=== PATIENT | male | born 1970 | race African-American/Black ===

== ENCOUNTER 2017-11-23 19:14 | Inpatient (IN) ==
[2017-11-23] MEDS ORDERED: Etomidate Inj 40 MG/20 ML Vial IV.PUSH ONE ×2 (19:18→19:27)
[2017-11-23] MEDS ORDERED: Dextrose 50% in Water Syringe 50 ML ONE (19:22)
[2017-11-23] MEDS ORDERED: Propofol Inj 500 MG/50 ML Vial ONE ×2 (19:25→19:32)
[2017-11-23] MEDS ORDERED: Sod Chloride 0.9% Inj 1,000 ML IV.SIG ONE ×2 (19:27→20:24)
[2017-11-23] MEDS ORDERED: Succinylcholine Inj 100 MG/5 ML Syringe IV.PUSH ONE (19:27)
--- NOTE | 2017-11-23 20:02 | XR ---
EXAM DATE: 11/23/2017 7:50 PM EDT AGE/SEX: 89 years / Male INDICATIONS: Short of breath. CLINICAL DATA: This is the patient's initial encounter. Patient reports that signs and symptoms have been present for 1 day and indicates a pain score of Nonresponsive. MEDICAL/SURGICAL HISTORY: Non-responsive. Non-responsive. COMPARISON: No prior exams available for comparison. FINDINGS: The ET tube and NG tube are well placed. The heart size is normal. The lungs appear grossly clear. CONCLUSION: No acute abnormality is seen. Electronically signed by: Wes Hua MD 11/23/2017 8:01 PM EDT
[2017-11-23 20:25] LABS: Baso % (Auto) 0.6 % (0.0-2.0); Eos # (Auto) 0.1 th/mm3 (0.0-0.4); Eos % (Auto) 1.1 % (0.0-4.0); Hematocrit 41.6 % (39.0-51.0); Hemoglobin 13.8 gm/dL (13.0-17.0); Lymph # (Auto) 1.8 th/mm3 (1.0-4.8); Lymph % (Auto) 25.9 % (9.0-44.0); Mean Corpuscular HGB Conc 33.1 % (32.0-36.0); Mean Corpuscular Hemoglobin 32.2 pg (27.0-34.0); Mean Corpuscular Volume 97.3 fL (80.0-100.0); Mean Platelet Volume 7.9 fL (7.0-11.0); Mono # (Auto) 0.6 th/mm3 (0.0-0.9); Mono % (Auto) 7.9 % (0.0-8.0); Neut # (Auto) 4.5 th/mm3 (1.8-7.7); Neut % (Auto) 64.5 % (16.0-70.0); Platelet Count 269 th/mm3 (150-450); Red Blood Count 4.28 mil/mm3 (4.50-5.90); Red Cell Distribution Width 13.2 % (11.6-17.2)
[2017-11-23 20:30] LABS: ABG Base Excess -4.5 mmol/L (-2-2); ABG PCO2 43 mmHg (38-42); ABG PO2 181 mmHg (61-120)
[2017-11-23 20:31] LABS: Bacteria,Urine Occasional /hpf; Bilirubin,Urine Negative (Negative); Clarity,Urine Hazy (Clear); Color,Urine Yellow (Yellw/Straw); Glucose,Urine (UA) 50 mg/dL (Negative); Hyaline Casts,Urine 1 /lpf (0-3); Leukocyte Esterase,Urine Moderate (Negative); Nitrite,Urine Negative (Negative); Specific Gravity,Urine 1.012 (1.002-1.035)
[2017-11-23] MEDS ORDERED: Piperacil/Tazo 4.5 GM Premix 4.5 GM/100 ML BAG IV.SIG ONE (20:33)
[2017-11-23 20:36] LABS: Amphetamine Screen,Urine Neg (Neg); Barbiturate Screen,Urine Neg (Neg); Cannabinoid Screen,Urine Neg (Neg); Cocaine Screen,Urine Pos (Neg)
[2017-11-23 20:42] LABS: Activated Partial Thrombo Time 32.5 sec (24.3-30.1); INR 1.1 Ratio; Prothrombin Time 10.7 sec (9.8-11.6)
[2017-11-23 20:44] LABS: Albumin 4.2 g/dL (3.4-5.0); Anion Gap 14 meq/L (5-15); Aspartate Aminotransferase 19 U/L (15-37); Blood Urea Nitrogen 11 mg/dL (7-18); Calcium 8.9 mg/dL (8.5-10.1); Carbon Dioxide 22.4 meq/L (21.0-32.0); Chloride 104 meq/L (98-107); Glomerular Filtration Rate 46 mL/min (>89); Glucose,Random 52 mg/dL (74-106); Magnesium 2.2 mg/dL (1.5-2.5); Potassium 3.4 meq/L (3.5-5.1); Sodium 140 meq/L (136-145)
[2017-11-23 20:45] LABS: Alanine Aminotransferase 21 U/L (12-78); Phosphorus 1.5 mg/dL (2.5-4.9)
[2017-11-23 20:47] LABS: Alcohol 22 mg/dL (0-5)
[2017-11-23 20:47] LABS: Opiate Screen,Urine Neg (Neg)
[2017-11-23 20:48] LABS: Alkaline Phosphatase 61 U/L (45-117); Creatine Kinase 335 U/L (39-308); Total Protein 7.8 g/dL (6.4-8.2)
[2017-11-23] MEDS: Propofol 1000 mg/100 ml Inj 1,000 MG/100 ML BOTTLE IV.CONT PRN (20:56)
[2017-11-23 21:00] LABS: CKMB Percent 1.4 % (0.0-4.0); Creatine Kinase MB 4.8 ng/mL (0.5-3.6)
--- NOTE | 2017-11-23 21:26 | ED ---
HPI General Chief Complaint: Overdose Stated Complaint: Poss OD/Evac Time Seen by Provider: 11/23/17 19:26 Source: EMS Mode of arrival: EMS Limitations: altered mental status History of Present Illness HPI Narrative: Approximately 31-year-old male presents by ambulance with altered mental status with possible overdose. He was found with Motrin p.m. He was given 1.2 mg of Narcan with mild improvement. Patient unable to provide history MD complaint: intentional overdose Onset (ago): unknown Intent: unknown (report by ems had suicidal intent) Related Data Home Medications Medication Instructions Recorded Confirmed Unable to Obtain Home Meds 11/23/17 11/23/17 Allergies Allergy/AdvReac Type Severity Reaction Status Date / Time No Allergy Information Allergy Unverified 11/23/17 19:18 Available Review of Systems ROS Unobtainable unobtainable due to mental status [facility] Medical History Medical History Patient unable to obtain copy of document (Acute) Patient unable to obtain copy of document (Acute) Social History Social History Substance History: Unable to Obtain Smoking Status: Unknown if ever smoked How Often Do You Have a Drink Containing Alcohol: Unable to Obtain Immunization History Tetanus Immunization: Unable to Assess Hx Influenza Vaccine This Season: Unable to Assess Exam Narrative Exam Narrative: GENERAL: 31 n[age] y/o male presents in severe distress SKIN: Focused skin assessment warm/dry. HEAD: Atraumatic. Normocephalic. EYES: Pinpoint pupils. No scleral icterus. No injection or drainage. ENT: No nasal bleeding or discharge. Mucous membranes pink and moist. NECK: Trachea midline. CARDIOVASCULAR: Regular rate and rhythm. RESPIRATORY: No accessory muscle use. Clear to auscultation. Breath sounds equal bilaterally. GASTROINTESTINAL: Abdomen soft, nondistended NEUROLOGICAL: Eyes open, moves extremities to pain, nonverbal Procedures Intubation Sedative: etomidate Mg Given: 20 Paralytic: succinylcholine Mg Given: 100 Laryngoscope: Wolf ET Tube Uncuffed: No Tube Secured Depth (cm): 24 Tube Secured Location: lips Tube Placement Confirmation: visualized tube passing through cords, equal breath sounds bilaterally, no breath sounds over epigastrium and confirmation by capnometry Patient Tolerated Procedure: well Intubation Complications: none Additional Comments: emergently performed: INTUBATION: The patient was put in optimal position for the procedure. Rapid sequence intubation was initiated by me using 20 milligrams of etomidate IV and 100 milligrams of succinylcholine IV. The patient was intubated with a 8 cuffed endotracheal tube. Tube placement was confirmed by visualization of the tube and balloon passing through the cords, capnometry and subsequent chest x-ray. Breath sounds were equal and well aerated bilaterally postintubation. No breath sounds over stomach. Patient tolerated procedure well. Course Reevaluation(s) Reevaluation #1: additional sedation given, workup reviewed and will admit to icu Consultations Consultation #1: dr ortiz agrees to admit Initial Documented Vital Signs Respiratory Rate 12 11/23/17 19:18 Blood Pressure 171/114 H 11/23/17 19:18 Pulse Oximetry 100 11/23/17 19:18 Last Documented Vital Signs Pulse Rate 82 11/24/17 00:15 Respiratory Rate 16 11/24/17 00:15 Blood Pressure 128/72 11/24/17 00:15 Pulse Oximetry 98 11/24/17 00:15 Critical Care Time Critical Care Time: Yes Total Critical Care Time: 45 Attestation: Aggregate critical care time was 45 minutes. Time to perform other separately billable procedures was not included in the critical care time. My time did not include minutes spent treating any other patients simultaneously or on activities that did not directly contribute to the patient's treatment. The services I provided to this patient were to treat and/or prevent clinically significant deterioration that could result in: shock, I provided critical care services requiring my management, as noted below: Chart data review, documentation time, medication orders and management, vital sign assessments/reviewing monitor data, ordering and reviewing lab tests, ordering and interpreting/reviewing x-rays and diagnostic studies, care of the patient and discussion of the patient with the admitting physicians. Medical Decision Making MDM Narrative Medical decision making narrative: Patient arrived with decreased GCS. Patient was given 2 rounds of Narcan without improvement. Patient was also given an amp of dextrose for glucose in the 70s without improvement. Proceeded with rapid sequence intubation with etomidate and succinylcholine. He is placed on propofol for sedation. He was bolused on this to sedate. He was also given additional Ativan and Versed for sedation. Differential Diagnosis Differential Diagnosis: Overdose, intracranial bleed, electrolyte abnormality, sepsis Lab Data Lab results reviewed: Yes I reviewed the patient's lab results. Result diagrams: 11/23/17 19:25 11/23/17 19:25 Lab Results 11/23/17 11/23/17 11/23/17 Range/Units 19:25 19:25 19:25 WBC 7.0 (4.0-11.0) th/mm3 RBC 4.28 L (4.50-5.90) mil/mm3 Hgb 13.8 (13.0-17.0) gm/dL Hct 41.6 (39.0-51.0) % MCV 97.3 (80.0-100.0) fL MCH 32.2 (27.0-34.0) pg MCHC 33.1 (32.0-36.0) % RDW 13.2 (11.6-17.2) % Plt Count 269 (150-450) th/mm3 MPV 7.9 (7.0-11.0) fL Neut % (Auto) 64.5 (16.0-70.0) % Lymph % (Auto) 25.9 (9.0-44.0) % [place] % (Auto) 7.9 (0.0-8.0) % Eos % (Auto) 1.1 (0.0-4.0) % Baso % (Auto) 0.6 (0.0-2.0) % Neut # (Auto) 4.5 (1.8-7.7) th/mm3 Lymph # (Auto) 1.8 (1.0-4.8) th/mm3 [place] # (Auto) 0.6 (0.0-0.9) th/mm3 Eos # (Auto) 0.1 (0.0-0.4) th/mm3 Baso # (Auto) 0.0 (0.0-0.2) th/mm3 WBC Differential . Differential Comment Auto diff final PT 10.7 (9.8-11.6) sec INR 1.1 Ratio APTT 32.5 H (24.3-30.1) sec Puncture Site Patient Temperature O2 Saturation (90-100) % ABG pH (7.380-7.420) ABG pCO2 (38-42) mmHg ABG pO2 (61-120) mmHg ABG HCO3 (22-26) mmol/L ABG O2 Content (12.0-20.0) Vol % ABG Base Excess (-2-2) mmol/L ABG Methemoglobin (0-2) % Javi Test Hemoglobin (12.0-16.0) G/DL Carboxyhemoglobin (0-4) % O2 Delivery Device Vent Setting Inspired O2 % Critical Value Sodium 140 (136-145) meq/L Potassium 3.4 L (3.5-5.1) meq/L Chloride 104 (98-107) meq/L Carbon Dioxide 22.4 (21.0-32.0) meq/L Anion Gap 14 (5-15) meq/L BUN 11 (7-18) mg/dL Creatinine 1.34 H (0.60-1.30) mg/dL Estimated GFR 46 L (>89) mL/min Random Glucose 52 L (74-106) mg/dL Osmolality (275-295) mosm/kg Lactic Acid (0.4-2.0) mmol/L Calcium 8.9 (8.5-10.1) mg/dL Phosphorus 1.5 L (2.5-4.9) mg/dL Magnesium 2.2 (1.5-2.5) mg/dL Total Bilirubin 0.6 (0.2-1.0) mg/dL AST 19 (15-37) U/L ALT 21 (12-78) U/L Alkaline Phosphatase 61 (45-117) U/L Total Creatine Kinase 335 H (39-308) U/L CK-MB (CK-2) 4.8 H (0.5-3.6) ng/mL CK-MB (CK-2) % 1.4 (0.0-4.0) % Troponin I Less than 0.02 L (0.02-0.05) ng/mL Total Protein 7.8 (6.4-8.2) g/dL Albumin 4.2 (3.4-5.0) g/dL Urine Color (Yellw/Straw) Urine Clarity (Clear) Urine pH (5.0-8.5) Ur Specific [place] (1.002-1.035) Urine Protein (Neg-Trace) mg/dL Urine Glucose (UA) (Negative) mg/dL Urine Ketones (Negative) mg/dL Urine Occult Blood (Negative) Urine Nitrate (Negative) Urine Bilirubin (Negative) Urine Urobilinogen (Less than 2) mg/dL Ur Leukocyte Esterase (Negative) Urine RBC (0-3) /hpf Urine WBC (0-5) /hpf Urine WBC Clumps (None) Urine Bacteria (None) /hpf Hyaline Casts (0-3) /lpf Micro UA Comment Urine Culture Comments Salicylates (2.8-20.0) mg/dL Urine Opiates Screen (Neg) Acetaminophen (10.0-30.0) mcg/mL Ur Barbiturates Screen (Neg) Ur Amphetamines Screen (Neg) U Benzodiazepines Scrn (Neg) Urine Cocaine Screen (Neg) U Cannabinoids Screen (Neg) Serum Alcohol 22 H (0-5) mg/dL 11/23/17 11/23/17 11/23/17 Range/Units 19:25 19:25 19:45 WBC (4.0-11.0) th/mm3 RBC (4.50-5.90) mil/mm3 Hgb (13.0-17.0) gm/dL Hct (39.0-51.0) % MCV (80.0-100.0) fL MCH (27.0-34.0) pg MCHC (32.0-36.0) % RDW (11.6-17.2) % Plt Count (150-450) th/mm3 MPV (7.0-11.0) fL Neut % (Auto) (16.0-70.0) % Lymph % (Auto) (9.0-44.0) % [place] % (Auto) (0.0-8.0) % Eos % (Auto) (0.0-4.0) % Baso % (Auto) (0.0-2.0) % Neut # (Auto) (1.8-7.7) th/mm3 Lymph # (Auto) (1.0-4.8) th/mm3 [place] # (Auto) (0.0-0.9) th/mm3 Eos # (Auto) (0.0-0.4) th/mm3 Baso # (Auto) (0.0-0.2) th/mm3 WBC Differential Differential Comment PT (9.8-11.6) sec INR Ratio APTT (24.3-30.1) sec Puncture Site Patient Temperature O2 Saturation (90-100) % ABG pH (7.380-7.420) ABG pCO2 (38-42) mmHg ABG pO2 (61-120) mmHg ABG HCO3 (22-26) mmol/L ABG O2 Content (12.0-20.0) Vol % ABG Base Excess (-2-2) mmol/L ABG Methemoglobin (0-2) % Javi Test Hemoglobin (12.0-16.0) G/DL Carboxyhemoglobin (0-4) % O2 Delivery Device Vent Setting Inspired O2 % Critical Value Sodium (136-145) meq/L Potassium (3.5-5.1) meq/L Chloride (98-107) meq/L Carbon Dioxide (21.0-32.0) meq/L Anion Gap (5-15) meq/L BUN (7-18) mg/dL Creatinine (0.60-1.30) mg/dL Estimated GFR (>89) mL/min Random Glucose (74-106) mg/dL Osmolality (275-295) mosm/kg Lactic Acid 2.7 H (0.4-2.0) mmol/L Calcium (8.5-10.1) mg/dL Phosphorus (2.5-4.9) mg/dL Magnesium (1.5-2.5) mg/dL Total Bilirubin (0.2-1.0) mg/dL AST (15-37) U/L ALT (12-78) U/L Alkaline Phosphatase (45-117) U/L Total Creatine Kinase (39-308) U/L CK-MB (CK-2) (0.5-3.6) ng/mL CK-MB (CK-2) % (0.0-4.0) % Troponin I (0.02-0.05) ng/mL Total Protein (6.4-8.2) g/dL Albumin (3.4-5.0) g/dL Urine Color (Yellw/Straw) Urine Clarity (Clear) Urine pH (5.0-8.5) Ur Specific [place] (1.002-1.035) Urine Protein (Neg-Trace) mg/dL Urine Glucose (UA) (Negative) mg/dL Urine Ketones (Negative) mg/dL Urine Occult Blood (Negative) Urine Nitrate (Negative) Urine Bilirubin (Negative) Urine Urobilinogen (Less than 2) mg/dL Ur Leukocyte Esterase (Negative) Urine RBC (0-3) /hpf Urine WBC (0-5) /hpf Urine WBC Clumps (None) Urine Bacteria (None) /hpf Hyaline Casts (0-3) /lpf Micro UA Comment Urine Culture Comments Salicylates Less than 1.7 L (2.8-20.0) mg/dL Urine Opiates Screen (Neg) Acetaminophen Less than 2.0 L (10.0-30.0) mcg/mL Ur Barbiturates Screen (Neg) Ur Amphetamines Screen (Neg) U Benzodiazepines Scrn (Neg) Urine Cocaine Screen (Neg) U Cannabinoids Screen (Neg) Serum Alcohol (0-5) mg/dL 11/23/17 11/23/17 11/23/17 Range/Units 19:45 19:45 20:16 WBC (4.0-11.0) th/mm3 RBC (4.50-5.90) mil/mm3 Hgb (13.0-17.0) gm/dL Hct (39.0-51.0) % MCV (80.0-100.0) fL MCH (27.0-34.0) pg MCHC (32.0-36.0) % RDW (11.6-17.2) % Plt Count (150-450) th/mm3 MPV (7.0-11.0) fL Neut % (Auto) (16.0-70.0) % Lymph % (Auto) (9.0-44.0) % [place] % (Auto) (0.0-8.0) % Eos % (Auto) (0.0-4.0) % Baso % (Auto) (0.0-2.0) % Neut # (Auto) (1.8-7.7) th/mm3 Lymph # (Auto) (1.0-4.8) th/mm3 [place] # (Auto) (0.0-0.9) th/mm3 Eos # (Auto) (0.0-0.4) th/mm3 Baso # (Auto) (0.0-0.2) th/mm3 WBC Differential Differential Comment PT (9.8-11.6) sec INR Ratio APTT (24.3-30.1) sec Puncture Site Right radial Patient Temperature 98.6 O2 Saturation 96 (90-100) % ABG pH 7.31 L (7.380-7.420) ABG pCO2 43 H (38-42) mmHg ABG pO2 181 H (61-120) mmHg ABG HCO3 21 L (22-26) mmol/L ABG O2 Content 19.1 (12.0-20.0) Vol % ABG Base Excess -4.5 L (-2-2) mmol/L ABG Methemoglobin 0.7 (0-2) % Javi Test Present Hemoglobin 13.9 (12.0-16.0) G/DL Carboxyhemoglobin 2.6 (0-4) % O2 Delivery Device Ventilator Vent Setting Prvc/ac Inspired O2 50 % Critical Value No Sodium (136-145) meq/L Potassium (3.5-5.1) meq/L Chloride (98-107) meq/L Carbon Dioxide (21.0-32.0) meq/L Anion Gap (5-15) meq/L BUN (7-18) mg/dL Creatinine (0.60-1.30) mg/dL Estimated GFR (>89) mL/min Random Glucose (74-106) mg/dL Osmolality (275-295) mosm/kg Lactic Acid (0.4-2.0) mmol/L Calcium (8.5-10.1) mg/dL Phosphorus (2.5-4.9) mg/dL Magnesium (1.5-2.5) mg/dL Total Bilirubin (0.2-1.0) mg/dL AST (15-37) U/L ALT (12-78) U/L Alkaline Phosphatase (45-117) U/L Total Creatine Kinase (39-308) U/L CK-MB (CK-2) (0.5-3.6) ng/mL CK-MB (CK-2) % (0.0-4.0) % Troponin I (0.02-0.05) ng/mL Total Protein (6.4-8.2) g/dL Albumin (3.4-5.0) g/dL Urine Color Yellow (Yellw/Straw) Urine Clarity Hazy H (Clear) Urine pH 5.0 (5.0-8.5) Ur Specific [place] 1.012 (1.002-1.035) Urine Protein 30 H (Neg-Trace) mg/dL Urine Glucose (UA) 50 (Negative) mg/dL Urine Ketones Trace (Negative) mg/dL Urine Occult Blood Negative (Negative) Urine Nitrate Negative (Negative) Urine Bilirubin Negative (Negative) Urine Urobilinogen Less than 2 (Less than 2) mg/dL Ur Leukocyte Esterase Moderate H (Negative) Urine RBC 2 (0-3) /hpf Urine WBC 83 H (0-5) /hpf Urine WBC Clumps Few H (None) Urine Bacteria Occasional H (None) /hpf Hyaline Casts 1 (0-3) /lpf Micro UA Comment Cath-culture ind Urine Culture Comments Cath-cult indicated Salicylates (2.8-20.0) mg/dL Urine Opiates Screen Neg (Neg) Acetaminophen (10.0-30.0) mcg/mL Ur Barbiturates Screen Neg (Neg) Ur Amphetamines Screen Neg (Neg) U Benzodiazepines Scrn Neg (Neg) Urine Cocaine Screen Pos H (Neg) U Cannabinoids Screen Neg (Neg) Serum Alcohol (0-5) mg/dL 11/23/17 Range/Units 20:32 WBC (4.0-11.0) th/mm3 RBC (4.50-5.90) mil/mm3 Hgb (13.0-17.0) gm/dL Hct (39.0-51.0) % MCV (80.0-100.0) fL MCH (27.0-34.0) pg MCHC (32.0-36.0) % RDW (11.6-17.2) % Plt Count (150-450) th/mm3 MPV (7.0-11.0) fL Neut % (Auto) (16.0-70.0) % Lymph % (Auto) (9.0-44.0) % [place] % (Auto) (0.0-8.0) % Eos % (Auto) (0.0-4.0) % Baso % (Auto) (0.0-2.0) % Neut # (Auto) (1.8-7.7) th/mm3 Lymph # (Auto) (1.0-4.8) th/mm3 [place] # (Auto) (0.0-0.9) th/mm3 Eos # (Auto) (0.0-0.4) th/mm3 Baso # (Auto) (0.0-0.2) th/mm3 WBC Differential Differential Comment PT (9.8-11.6) sec INR Ratio APTT (24.3-30.1) sec Puncture Site Patient Temperature O2 Saturation (90-100) % ABG pH (7.380-7.420) ABG pCO2 (38-42) mmHg ABG pO2 (61-120) mmHg ABG HCO3 (22-26) mmol/L ABG O2 Content (12.0-20.0) Vol % ABG Base Excess (-2-2) mmol/L ABG Methemoglobin (0-2) % Javi Test Hemoglobin (12.0-16.0) G/DL Carboxyhemoglobin (0-4) % O2 Delivery Device Vent Setting Inspired O2 % Critical Value Sodium (136-145) meq/L Potassium (3.5-5.1) meq/L Chloride (98-107) meq/L Carbon Dioxide (21.0-32.0) meq/L Anion Gap (5-15) meq/L BUN (7-18) mg/dL Creatinine (0.60-1.30) mg/dL Estimated GFR (>89) mL/min Random Glucose (74-106) mg/dL Osmolality 294 (275-295) mosm/kg Lactic Acid (0.4-2.0) mmol/L Calcium (8.5-10.1) mg/dL Phosphorus (2.5-4.9) mg/dL Magnesium (1.5-2.5) mg/dL Total Bilirubin (0.2-1.0) mg/dL AST (15-37) U/L ALT (12-78) U/L Alkaline Phosphatase (45-117) U/L Total Creatine Kinase (39-308) U/L CK-MB (CK-2) (0.5-3.6) ng/mL CK-MB (CK-2) % (0.0-4.0) % Troponin I (0.02-0.05) ng/mL Total Protein (6.4-8.2) g/dL Albumin (3.4-5.0) g/dL Urine Color (Yellw/Straw) Urine Clarity (Clear) Urine pH (5.0-8.5) Ur Specific [place] (1.002-1.035) Urine Protein (Neg-Trace) mg/dL Urine Glucose (UA) (Negative) mg/dL Urine Ketones (Negative) mg/dL Urine Occult Blood (Negative) Urine Nitrate (Negative) Urine Bilirubin (Negative) Urine Urobilinogen (Less than 2) mg/dL Ur Leukocyte Esterase (Negative) Urine RBC (0-3) /hpf Urine WBC (0-5) /hpf Urine WBC Clumps (None) Urine Bacteria (None) /hpf Hyaline Casts (0-3) /lpf Micro UA Comment Urine Culture Comments Salicylates (2.8-20.0) mg/dL Urine Opiates Screen (Neg) Acetaminophen (10.0-30.0) mcg/mL Ur Barbiturates Screen (Neg) Ur Amphetamines Screen (Neg) U Benzodiazepines Scrn (Neg) Urine Cocaine Screen (Neg) U Cannabinoids Screen (Neg) Serum Alcohol (0-5) mg/dL Imaging Data Attestation: I personally reviewed and interpreted this imaging study as follows : Radiologist's impression: Chest X-Ray 11/23/17 19:27 CONCLUSION: Head CT 11/23/17 19:27 CONCLUSION: Discharge Plan Discharge Disposition Patient Disposition: 30 Still Patient Discharge Condition Condition: Critical Discharge Details Diagnosis: Drug overdose, Cocaine intoxication, Suicide attempt by multiple drug overdose , Respiratory failure Physicians Team ED Provider: Annette Jean Primary Care Provider: Primary Care Courtney Clemons Attending Provider: Pardeep Ortiz Status ED Status: Admitted Patient
--- NOTE | 2017-11-23 21:55 | CT ---
EXAM DATE: 11/23/2017 9:46 PM EDT AGE/SEX: 89 years / Male INDICATIONS: Altered mental status. CLINICAL DATA: This is the patient's initial encounter. Patient reports that signs and symptoms have been present for 1 day and indicates a pain score of Nonresponsive. MEDICAL/SURGICAL HISTORY: Non-responsive. Non-responsive. RADIATION DOSE: 56.35 CTDI (mGy) COMPARISON: No prior exams available for comparison. TECHNIQUE: CT of the head without contrast. Using automated exposure control and adjustment of the mA and/or kV according to patient size, radiation dose was kept as low as reasonably achievable to ob tain optimal diagnostic quality images. DICOM format image data is available electronically for revi ew and comparison. FINDINGS: Cerebrum: The ventricles are normal for age. There is a patent cavum septum pellucidum. No evidence of midline shift, mass lesion, hemorrhage or acute infarction. No extraaxial fluid collections are seen. Posterior Fossa: The cerebellum and brainstem are intact. The 4th ventricle is midline. The cerebe llopontine angle is unremarkable. Extracranial: The visualized portion of the orbits is intact. Skull: The calvaria is intact. No evidence of skull fracture. No acute abnormality is seen. . Electronically signed by: Wes Hua MD 11/23/2017 9:54 PM EDT
[2017-11-23] MEDS ORDERED: Acetaminophen 325 MG Tablet PO PRN (23:22)
[2017-11-23] MEDS ORDERED: Bisacodyl 10 MG Supp RECTAL PRN (23:22)
--- NOTE | 2017-11-23 23:27 | P.HPCC ---
History of Present Illness Primary Care Physician: No Primary Care Physician History of Present Illness: Approximately 31-year-old male presents by ambulance with altered mental status with possible overdose. He was found with Motrin p.m. He was given 1.2 mg of Narcan with mild improvement. He was intubated by ED attending for an airway protection and acute respiratory failure. No further history is obtainable due to patient's mental status and endotracheal intubation. Inpatient Certification: I certify that the inpatient services were ordered in accordance with Medicare regulations governing the order. This includes certification that hospital inpatient services are reasonable and necessary and in the case of services not specified as inpatient-only under 42 CFR 419.22(n), that they are appropriately provided as inpatient services in accordance to with the 2-midnight benchmark under 43 CFR 412.3(e) Estimated Total Length of Stay (Days): 5 Plans for Post Hospital Care: Not yet determined Review of Systems unobtainable due to endotracheal tube PMFSH - History History Provided By: Group President / EMT - Medical / Surgical Hx Neg / Unobtainable Medical Problems Denied: Unable to Obtain Surgical History: Unable to Obtain - Medical History Medical History: Medical History (Last Reviewed 11/23/17 @ 21:42 by Annette Jean MD) Patient unable to obtain copy of document Patient unable to obtain copy of document - Tobacco History Smoking Status: Unknown if ever smoked - Alcohol History How Often Do You Have a Drink Containing Alcohol: Unable to Obtain - Substance Use History Substance History: Unable to Obtain - Immunization History Tetanus Immunization: Unable to Assess Hx Influenza Vaccine This Season: Unable to Assess Medications and Allergies Active Medications: Active Medications Acetaminophen (Tylenol) 650 mg PO Q6H PRN PRN Reason: PAIN 1-10 AND/OR FEVER >101F Al Hydroxide/Mg Hydroxide (Milk Of Jennifer Liq) 30 ml PO Q12H PRN PRN Reason: Mild Constipation Albuterol (Duoneb Neb (Prn)) 1 ampul NEB Q2HR NEB PRN PRN Reason: WHEEZING Bisacodyl (Dulcolax Supp) 10 mg RECTAL DAILY PRN PRN Reason: SEVERE CONSITIPATION Chlorhexidine Gluconate (Peridex 0.12% Oral Kit) 15 ml OROPHARYNG BID@0800, 2000 [facility] Chlorhexidine Gluconate (Chlorhexidine 2% Cloth) 3 pack TOPICAL DAILY@0400 [facility] Stop: 11/29/17 03:59 Chlorhexidine Gluconate (Chlorhexidine 2% Cloth) 3 pack TOPICAL DAILY@0400 PRN PRN Reason: Extra cloth needed Stop: 11/29/17 03:59 Enoxaparin Sodium (Lovenox Inj) 40 mg SQ Q24H ALBA Famotidine (Pepcid Pf Inj) 20 mg IV.PUSH Q12HR ALBA Propofol (Diprivan 1000 Mg/100 Ml Inj) 1,000 mg in 100 mls @ 3 mls/hr IV.CONT TITRATE PRN; Protocol PRN Reason: Per Protocol Last Admin: 11/23/17 20:56 Dose: 30 mcg/kg/min, 18 mls/hr Sodium Chloride (Ns Inj) 1,000 mls @ 124 mls/hr IV.CONT .Q8H4M ALBA Lactulose (Lactulose Liq) 30 ml PO DAILY PRN PRN Reason: SEVERE CONSITIPATION Midazolam HCl (Versed Inj) 2 mg IV.PUSH Q1H PRN PRN Reason: SEDATION Ondansetron HCl (Zofran Inj) 4 mg IV.PUSH Q6H PRN PRN Reason: NAUSEA OR VOMITING Senna/Docusate Sodium (Sanjana-Colace) 1 tab PO BID ALBA Sennosides (Senokot) 17.2 mg PO Q12H PRN PRN Reason: Moderate Constipation Sodium Chloride (Ns Flush) 2 ml IV.FLUSH PRN PRN PRN Reason: FLUSH AFTER USING IV ACCESS Sodium Chloride (Ns Flush) 2 ml IV.FLUSH BID ALBA Sodium Chloride (Ns Flush) 2 ml IV.FLUSH PRN PRN PRN Reason: FLUSH AFTER USING IV ACCESS Allergies Allergy/AdvReac Type Severity Reaction Status Date / Time No Allergy Information Allergy Unverified 11/23/17 19:18 Available Home Medications Medication Instructions Recorded Confirmed Type Unable to Obtain Home Meds 11/23/17 11/23/17 History Results - Labs CBC & Chem 7: 11/23/17 19:25 11/23/17 19:25 Labs: Short CBC 11/23/17 Range/Units 19:25 WBC 7.0 (4.0-11.0) th/mm3 Hgb 13.8 (13.0-17.0) gm/dL Hct 41.6 (39.0-51.0) % Plt Count 269 (150-450) th/mm3 BMP 11/23/17 19:25 Sodium 140 Potassium 3.4 L Chloride 104 Carbon Dioxide 22.4 BUN 11 Creatinine 1.34 H Calcium 8.9 Cardiac Enzymes 11/23/17 Range/Units 19:25 Total Creatine Kinase 335 H (39-308) U/L CK-MB (CK-2) 4.8 H (0.5-3.6) ng/mL Troponin I Less than 0.02 L (0.02-0.05) ng/mL Liver Function 11/23/17 Range/Units 19:25 Total Bilirubin 0.6 (0.2-1.0) mg/dL AST 19 (15-37) U/L ALT 21 (12-78) U/L Alkaline Phosphatase 61 (45-117) U/L Albumin 4.2 (3.4-5.0) g/dL Urine 11/23/17 Range/Units 19:45 Urine Color Yellow (Yellw/Straw) Urine Clarity Hazy H (Clear) Urine pH 5.0 (5.0-8.5) Ur Specific [place] 1.012 (1.002-1.035) Urine Protein 30 H (Neg-Trace) mg/dL Urine Glucose (UA) 50 (Negative) mg/dL - Imaging Impressions Chest X-Ray 11/23/17 19:27 CONCLUSION: Head CT 11/23/17 19:27 CONCLUSION: Exam Vital signs: Vital Signs 11/23/17 19:18 11/23/17 19:25 11/23/17 19:30 Pulse Rate 109 H 112 H Respiratory Rate 12 25 H Blood Pressure 171/114 H 249/137 H Pulse Oximetry 100 100 11/23/17 20:23 11/23/17 20:57 11/23/17 21:00 Pulse Rate 102 H 97 H 95 H Respiratory Rate 16 16 16 Blood Pressure 186/102 H 169/93 H 170/92 H Pulse Oximetry 100 99 100 11/23/17 21:50 11/23/17 22:15 Pulse Rate 95 H 88 Respiratory Rate 16 16 Blood Pressure 177/92 H 161/80 H Pulse Oximetry 100 100 Intake & Output 11/23/17 11/23/17 11/24/17 06:59 18:59 06:59 Intake Total 2200 / 2200 Output Total 2425 / 2425 Balance -225 / -225 Weight 100 kg Intake: IV 2150 / 2150 D50W Syringe 50 ML @ 0 mls/hr . 50 / 50 ROUTE .STK-MED ONE Rx#:[id number] Zosyn 4.5 GM Premix 4.5 gm In 100 / 100 100 ml @ 200 mls/hr IV.SIG ONCE ONE Rx#:[id number] NS Inj 1,000 ML @ Wide Open IV. 1999 / 1999 SIG BOLUS ONE Rx#:[id number] Other 50 / 50 Output: Urine Amount (Catheter) 2425 / 2425 Indwelling Urethral Catheter 2424 / 242 - Constitutional mild distress, obtunded - Routine HEENT Exam Head: Present: normocephalic, atraumatic - Routine Neck Exam Present: supple. Absent: JVD, carotid bruit - Routine Respiratory Exam Present: patient mechanically ventilated. Absent: rhonchi, stridor, wheezes - Routine Cardiovascular Exam Present: RRR, S1, S2 - Routine Abdominal Exam Present: soft, normoactive bowel sounds. Absent: tenderness, distended - Routine Extremities Exam Absent: cyanosis, clubbing, edema, full ROM - Routine Skin Exam Present: intact. Absent: cyanosis, erythema - Routine Neurological Exam Present: altered mental status. Absent: alert Caprini VTE Risk Assessment Caprini VTE Risk Assessment: Moderate/High Risk (score >= 2) Caprini Risk Assessment Model: Point Value = 1 Point Value = 2 Point Value = 3 Point Value = 5 Age 41-60 Minor surgery BMI > 25 kg/m2 Swollen legs Varicose veins or History of unexplained or recurrent spontaneous Oral contraceptives or hormone replacement Sepsis (< 1 month) Serious lung disease, including pneumonia (< 1 month) Abnormal pulmonary function Acute myocardial infarction Congestive heart failure (< 1 month) History of inflammatory bowel disease Medical patient at bed rest Age 61-74 Arthroscopic surgery Major open surgery (> 45 min) Laparoscopic surgery (> 45 min) Malignancy Confined to bed (> 72 hours) Immobilizing plaster cast Central venous access Age >= 75 History of VTE Family history of VTE Factor V Leiden Prothrombin [id number] Lupus anticoagulant Anticardiolipin antibodies Elevated serum homocysteine Heparin-induced thrombocytopenia Other congenital or acquired thrombophilia Stroke (< 1 month) Elective arthroplasty Hip, pelvis, or leg fracture Acute spinal cord injury (< 1 month) Prophylaxis Regimen: Total Risk Factor Score Risk Level Prophylaxis Regimen 0-1 Low Early ambulation 2 Moderate Order ONE of the following: *Sequential Compression Device (SCD) *Heparin 5000 units SQ BID 3-4 Higher Order ONE of the following medications: *Heparin 5000 units SQ TID *Enoxaparin/Lovenox 40 mg SQ daily (WT < 150 kg, CrCl > 30 mL/min) *Enoxaparin/Lovenox 30 mg SQ daily (WT < 150 kg, CrCl > 10-29 mL/min) *Enoxaparin/Lovenox 30 mg SQ BID (WT < 150 kg, CrCl > 30 mL/min) AND/OR *Sequential Compression Device (SCD) 5 or more Highest Order ONE of the following medications: *Heparin 5000 units SQ TID (Preferred with Epidurals) *Enoxaparin/Lovenox 40 mg SQ daily (WT < 150 kg, CrCl > 30 mL/min) *Enoxaparin/Lovenox 30 mg SQ daily (WT < 150 kg, CrCl > 10-29 mL/min) *Enoxaparin/Lovenox 30 mg SQ BID (WT < 150 kg, CrCl > 30 mL/min) AND *Sequential Compression Device (SCD) Assessment and Plan - Assessment and Plan Plan: Respiratory failure -Intubated for an airway protection -No weaning until neurologically improved -Vent bundle -DuoNeb's as needed Altered mental status -Intoxication -CT head negative -Drug screen positive only for cocaine -Neuro checks per unit protocol -Supportive care Cocaine intoxication -Monitor for withdrawal -Benzodiazepines as needed Acute kidney injury -Dehydration -Possible NSAIDs overdose -Aggressive IV fluid hydration -Strict I's and O's -Monitor creatinine and electrolytes level DVT GI prophylaxis -Teds SCDs -Subcu heparin -Pepcid Critical Care: The total critical care time was 35 minutes. Time to perform other separately billable procedures was not included in the critical care time.
[2017-11-23] MEDS ORDERED: Sod Chloride 0.9% Inj 1,000 ML IV.CONT SCH (23:30)
[2017-11-24] MEDS ORDERED: Potassium Phosphate 500 MG Soluble Tablet PO PRN ×2 (01:01)
[2017-11-24] MEDS ORDERED: Magnesium Sulfate Inj 2 GM in Sodium Chlor 0.9% Inj 96 ML IV.SIG PRN (01:01)
[2017-11-24] MEDS ORDERED: Sodium Phosphate Inj 30 MMOL in Sodium Chlor 0.9% Inj 250 ML IV.SIG PRN (01:01)
[2017-11-24] MEDS ORDERED: Magnesium Oxide 400 MG Tablet PO PRN (01:01)
[2017-11-24] MEDS ORDERED: Magnesium Sulfate Inj 4 GM in Sodium Chlor 0.9% Inj 92 ML IV.SIG PRN (01:01)
[2017-11-24] MEDS ORDERED: Potassium Chlor 20 mEq Premix 20 MEQ/100 ML PIGGYBACK IV.SIG PRN ×2 (01:01)
[2017-11-24] MEDS ORDERED: Potassium Chlor 40 mEq Premix 40 MEQ/100 ML PIGGYBACK IV.SIG PRN ×2 (01:01)
[2017-11-24] MEDS ORDERED: Potassium Chloride 25 MEQ Effervescent Tablet PO PRN (01:01)
[2017-11-24] MEDS ORDERED: Potassium Phosphate Inj 30 MMOL in Sodium Chlor 0.9% Inj 250 ML IV.SIG PRN (01:01)
[2017-11-24] MEDS: Oral Hygiene Kit OROPHARYNG SCH ×4 (01:20→15:46)
[2017-11-24] MEDS: Propofol 1000 mg/100 ml Inj 1,000 MG/100 ML BOTTLE IV.CONT PRN ×2 (02:42→06:26)
[2017-11-24] MEDS ORDERED: Chlorhexidine Gluconate 2% 1 Pack (2 Cloths) TOPICAL PRN (04:00)
[2017-11-24 04:21] LABS: Activated Partial Thrombo Time 32.6 sec (24.3-30.1); INR 1.1 Ratio; Prothrombin Time 11.6 sec (9.8-11.6)
[2017-11-24] MEDS: Chlorhexidine Gluconate 2% 1 Pack (2 Cloths) TOPICAL SCH (04:23)
[2017-11-24 04:26] LABS: Baso % (Auto) 0.6 % (0.0-2.0); Eos # (Auto) 0.1 th/mm3 (0.0-0.4); Eos % (Auto) 1.3 % (0.0-4.0); Hematocrit 40.5 % (39.0-51.0); Hemoglobin 13.3 gm/dL (13.0-17.0); Lymph # (Auto) 1.3 th/mm3 (1.0-4.8); Lymph % (Auto) 22.7 % (9.0-44.0); Mean Corpuscular HGB Conc 32.9 % (32.0-36.0); Mean Corpuscular Hemoglobin 32.2 pg (27.0-34.0); Mean Corpuscular Volume 97.9 fL (80.0-100.0); Mean Platelet Volume 7.3 fL (7.0-11.0); Mono # (Auto) 0.7 th/mm3 (0.0-0.9); Mono % (Auto) 11.5 % (0.0-8.0); Neut # (Auto) 3.7 th/mm3 (1.8-7.7); Neut % (Auto) 63.9 % (16.0-70.0); Platelet Count 257 th/mm3 (150-450); Red Blood Count 4.14 mil/mm3 (4.50-5.90); White Blood Count 5.9 th/mm3 (4.0-11.0)
[2017-11-24 04:33] LABS: Alanine Aminotransferase 22 U/L (12-78); Albumin 3.5 g/dL (3.4-5.0); Alkaline Phosphatase 53 U/L (45-117); Anion Gap 13 meq/L (5-15); Aspartate Aminotransferase 18 U/L (15-37); Blood Urea Nitrogen 11 mg/dL (7-18); Calcium 7.9 mg/dL (8.5-10.1); Carbon Dioxide 21.5 meq/L (21.0-32.0); Chloride 109 meq/L (98-107); Glomerular Filtration Rate 48 mL/min (>89); Glucose,Random 57 mg/dL (74-106); Magnesium 2.4 mg/dL (1.5-2.5); Phosphorus 3.6 mg/dL (2.5-4.9); Potassium 3.9 meq/L (3.5-5.1); Sodium 143 meq/L (136-145); Total Protein 7.1 g/dL (6.4-8.2)
[2017-11-24 05:03] LABS: ABG Base Excess -3.9 mmol/L (-2-2); ABG PCO2 42 mmHg (38-42); ABG PO2 214 mmHG (61-120)
[2017-11-24] MEDS ORDERED: Dextrose 50% in Water Syringe 50 ML ONE ×2 (06:34→11:15)
[2017-11-24] MEDS ORDERED: Enoxaparin Inj 40 MG/0.4 ML Syringe SQ SCH (09:00)
[2017-11-24] MEDS ORDERED: Famotidine PF Inj 20 MG/2 ML Vial IV.PUSH SCH (09:00)
--- NOTE | 2017-11-24 09:53 | P.PNCC ---
Subjective Subjective Remarks/Hospital Course: Approximately 31-year-old male presents by ambulance with altered mental status with possible overdose. He was found with Motrin p.m. He was given 1.2 mg of Narcan with mild improvement. He was intubated by ED attending for an airway protection and acute respiratory failure. No further history is obtainable due to patient's mental status and endotracheal intubation. SUBJ 11/24/17: Patient remains intubated heavily sedated with propofol. When sedation is lightened patient moves all extremities not following commands. Some coffee-ground material noted in NG tube. I have discontinued the subcu Lovenox. Disease DC famotidine and start IV Protonix infusion. Most likely gastritis from Motrin overdose. If coffee-ground persist will get GI consult Objective Vital Signs / I&O: Vital Signs 11/23/17 19:18 11/23/17 19:25 11/23/17 19:30 Temperature Pulse Rate 109 H 112 H Respiratory Rate 12 25 H Blood Pressure 171/114 H 249/137 H Pulse Oximetry 100 100 11/23/17 20:23 11/23/17 20:57 11/23/17 21:00 Temperature Pulse Rate 102 H 97 H 95 H Respiratory Rate 16 16 16 Blood Pressure 186/102 H 169/93 H 170/92 H Pulse Oximetry 100 99 100 11/23/17 21:39 11/23/17 21:50 11/23/17 22:15 Temperature Pulse Rate 95 H 88 Respiratory Rate 16 16 Blood Pressure 177/92 H 161/80 H Pulse Oximetry 100 100 100 11/23/17 23:22 11/24/17 00:15 11/24/17 00:40 Temperature Pulse Rate 82 82 Respiratory Rate 16 16 Blood Pressure 146/81 H 128/72 Pulse Oximetry 100 98 100 11/24/17 00:45 11/24/17 00:47 11/24/17 00:48 Temperature 99 F Pulse Rate 80 79 Respiratory Rate 19 20 19 Blood Pressure 148/81 H Pulse Oximetry 100 11/24/17 01:00 11/24/17 02:00 11/24/17 03:00 Temperature Pulse Rate 79 77 74 Respiratory Rate 20 16 23 Blood Pressure 162/85 H Pulse Oximetry 100 100 100 11/24/17 03:01 11/24/17 03:30 11/24/17 03:43 Temperature Pulse Rate 74 74 75 Respiratory Rate 23 20 22 Blood Pressure 162/85 H 174/86 H 176/88 H Pulse Oximetry 100 100 100 11/24/17 04:00 11/24/17 04:01 11/24/17 04:30 Temperature 98.9 F Pulse Rate 74 74 75 Respiratory Rate 20 20 20 Blood Pressure 195/95 H 165/75 H Pulse Oximetry 100 100 100 11/24/17 04:34 11/24/17 05:00 11/24/17 05:30 Temperature Pulse Rate 76 74 Respiratory Rate 20 21 21 Blood Pressure 152/77 H 159/79 H Pulse Oximetry 100 100 100 11/24/17 06:00 11/24/17 06:30 11/24/17 07:00 Temperature Pulse Rate 74 74 74 Respiratory Rate 21 20 21 Blood Pressure 155/77 H 159/76 H 164/78 H Pulse Oximetry 100 100 100 11/24/17 09:07 Temperature Pulse Rate Respiratory Rate 19 Blood Pressure Pulse Oximetry 100 Intake & Output 11/23/17 11/24/17 11/24/17 18:59 06:59 18:59 Intake Total 3288 / 3288 Output Total 4625 / 4625 Balance -1337 / -1337 Weight 88 kg Intake: IV 3118 / 3118 D50W Syringe 50 ML @ 0 mls/hr . 50 / 50 ROUTE .STK-MED ONE Rx#:[id number] Diprivan 1000 mg/100 ml Inj 1, 200 / 200 000 mg In 100 ml @ 5 MCG/KG/MIN 3 mls/hr IV.CONT TITRATE PRN Rx#:[id number] NS Inj 1,000 ML @ 124 mls/hr IV 768 / 768 .CONT .Q8H4M ALBA Rx#:[id number] Zosyn 4.5 GM Premix 4.5 gm In 100 / 100 100 ml @ 200 mls/hr IV.SIG ONCE ONE Rx#:[id number] NS Inj 1,000 ML @ Wide Open IV. 1999 SIG BOLUS ONE Rx#:[id number] Water Bolus Amount 120 / 120 Other 50 / 50 Output: Urine Amount (Catheter) 4325 / 4325 Indwelling Urethral Catheter 4325 / 4325 Gastric Drainage 300 / 300 Oral Orogastric Tube 300 / 300 Other: # Bowel Movements 0 Weight On Admission 88 kg Result Diagrams: 11/24/17 03:28 11/24/17 08:25 Objective Remarks: - Constitutional Intubated sedated with propofol - Routine HEENT Exam Head: normocephalic, atraumatic - Routine Neck Exam Supple. Absent JVD, carotid bruit - Routine Respiratory Exam Patient mechanically ventilated. Absent rhonchi, stridor, wheezes - Routine Cardiovascular Exam RRR, S1, S2 normal no murmurs - Routine Abdominal Exam Soft, normoactive bowel sounds. - Routine Extremities Exam No cyanosis, clubbing, edema, full ROM - Routine Skin Exam intact. No cyanosis, erythema - Routine Neurological Exam Patient remains sedated on propofol. On lightening sedation moves all 4 extremities do not appear to have any focal deficits Assessment and Plan - Assessment and Plan Plan: Respiratory failure -Intubated for an airway protection -Start weaning trials once mentation improved -Vent bundle -DuoNeb's as needed Altered mental status -Intoxication with Cocaine, Motrin PM -CT head negative -Drug screen positive only for cocaine. Also overdosed on Motrin. (Ibuprofen plus diphenhydramine) -Neuro checks per unit protocol -Supportive care Cocaine intoxication -Monitor for withdrawal -Benzodiazepines as needed Acute kidney injury -Dehydration -Possible NSAIDs overdose -Aggressive IV fluid hydration -Strict I's and O's -Monitor creatinine and electrolytes level UGIB: -Most likely from gastritis from Motrin overdose -DC IV famotidine, start Protonix infusion -If persistent good GI consult DVT GI prophylaxis -Teds SCDs -Subcu heparin-continue due to GI bleed -Protonix gtt Critical Care: The total critical care time was 35 minutes. Time to perform other separately billable procedures was not included in the critical care time. Code Status: Full
[2017-11-24] MEDS ORDERED: hydrALAZINE HCl Inj 20 MG/ML Vial IV.PUSH PRN (10:08)
[2017-11-24] MEDS: Chlorhexidine 0.12% Oral Kit 15 ML UDC OROPHARYNG SCH ×2 (11:19→20:01)
[2017-11-24] MEDS: Pantoprazole Inj 80 MG in Sodium Chlor 0.9% Inj 100 ML IV.CONT SCH ×2 (11:20→23:41)
[2017-11-24] MEDS: Multivitamin Inj 10 ML, Thiamine Inj 100 MG, Folic Acid Inj 1 MG in Sodium Chlor 0.9% I... IV.SIG SCH (11:20)
[2017-11-24] MEDS: Senna/Docusate Sodium 8.6/50 MG Tablet PO SCH ×2 (11:20→20:00)
[2017-11-24] MEDS: Dexmedetomidine Inj 200 MCG in Sodium Chlor 0.9% Inj 48 ML IV.CONT PRN ×4 (11:21→19:13)
[2017-11-24] MEDS ORDERED: niCARdipine Inj 25 MG in Sodium Chlor 0.9% Inj 240 ML IV.CONT PRN (12:03)
[2017-11-24] MEDS: Dextrose 5%/NaCl 0.9% Inj 1,000 ML IV.SIG SCH (14:17)
[2017-11-25] MEDS: Oral Hygiene Kit OROPHARYNG SCH ×3 (02:02→16:01)
[2017-11-25] MEDS: Dextrose 5%/NaCl 0.9% Inj 1,000 ML IV.SIG SCH ×2 (02:20→04:42)
[2017-11-25] MEDS: Dexmedetomidine Inj 200 MCG in Sodium Chlor 0.9% Inj 48 ML IV.CONT PRN (02:21)
[2017-11-25] MEDS: Chlorhexidine Gluconate 2% 1 Pack (2 Cloths) TOPICAL SCH (04:06)
[2017-11-25] MEDS: Chlorhexidine 0.12% Oral Kit 15 ML UDC OROPHARYNG SCH ×2 (08:02→20:40)
[2017-11-25] MEDS: Pantoprazole Inj 80 MG in Sodium Chlor 0.9% Inj 100 ML IV.CONT SCH (10:45)
[2017-11-25] MEDS: Senna/Docusate Sodium 8.6/50 MG Tablet PO SCH ×2 (10:46→20:29)
[2017-11-25] MEDS ORDERED: Vancomycin Inj 1,000 MG in Sodium Chlor 0.9% Inj 250 ML IV.SIG ONE (11:15)
--- NOTE | 2017-11-25 11:30 | P.PNCC ---
Subjective Subjective Remarks/Hospital Course: Approximately 31-year-old male presents by ambulance with altered mental status with possible overdose. He was found with Motrin p.m. He was given 1.2 mg of Narcan with mild improvement. He was intubated by ED attending for an airway protection and acute respiratory failure. No further history is obtainable due to patient's mental status and endotracheal intubation. SUBJ 11/24/17: Patient remains intubated heavily sedated with propofol. When sedation is lightened patient moves all extremities not following commands. Some coffee-ground material noted in NG tube. I have discontinued the subcu Lovenox. Disease DC famotidine and start IV Protonix infusion. Most likely gastritis from Motrin overdose. If coffee-ground persist will get GI consult 11/25: Extubated yesterday tolerating well mental status is improving. Weaned off Precedex follows commands. No further GI bleed reported Objective Vital Signs / I&O: Vital Signs 11/24/17 12:00 11/24/17 13:00 11/24/17 14:00 Temperature 98.8 F Pulse Rate 72 61 59 L Respiratory Rate 19 19 45 H Blood Pressure 175/82 H 159/76 H 151/72 H Pulse Oximetry 100 100 100 11/24/17 15:00 11/24/17 16:00 11/24/17 17:00 Temperature 98.6 F Pulse Rate 58 L 58 L 57 L Respiratory Rate 20 19 17 Blood Pressure 153/71 H 160/76 H 163/75 H Pulse Oximetry 100 100 100 11/24/17 18:00 11/24/17 19:00 11/24/17 20:00 Temperature 98.8 F 98.3 F Pulse Rate 57 L 56 L 54 L Respiratory Rate 17 15 15 Blood Pressure 158/74 H 155/69 H 155/70 H Pulse Oximetry 100 100 100 11/24/17 21:00 11/24/17 21:42 11/24/17 22:00 Temperature Pulse Rate 55 L 54 L Respiratory Rate 23 19 Blood Pressure 140/65 143/67 H Pulse Oximetry 100 100 100 11/24/17 23:00 11/25/17 00:00 11/25/17 01:00 Temperature 98.2 F Pulse Rate 53 L 53 L 52 L Respiratory Rate 33 H 18 14 Blood Pressure 144/68 H 142/68 H 143/65 H Pulse Oximetry 100 100 100 11/25/17 02:00 11/25/17 03:00 11/25/17 04:00 Temperature 98.6 F Pulse Rate 51 L 50 L 50 L Respiratory Rate 15 21 26 H Blood Pressure 142/65 H 141/64 H 143/63 H Pulse Oximetry 100 100 100 11/25/17 05:00 11/25/17 06:00 11/25/17 07:00 Temperature Pulse Rate 50 L 50 L 53 L Respiratory Rate 12 16 16 Blood Pressure 135/62 140/63 138/65 Pulse Oximetry 100 100 100 11/25/17 08:00 11/25/17 08:47 Temperature 97.5 F L Pulse Rate 50 L Respiratory Rate 12 Blood Pressure 135/60 Pulse Oximetry 100 100 Intake & Output 11/24/17 11/25/17 11/25/17 18:59 06:59 18:59 Intake Total 688.2 / 688.2 1503.7 / 1503.7 41.7 / 41.7 Output Total 1475 / 1475 550 / 550 Balance -786.8 / -786.8 953.7 / 953.7 41.7 / 41.7 Weight 87.5 kg Intake: IV 688.2 / 688.2 1503.7 / 1503.7 41.7 / 41.7 Precedex Inj 200 MCG In NS Inj 102 / 102 107.4 / 107.4 48 ML @ 0.2 MCG/KG/HR 4.4 mls/ hr IV.CONT TITRATE PRN Rx#: [id number] Protonix Inj 80 MG In NS Inj 158.3 / 158.3 41.7 / 41.7 100 ML @ 10 mls/hr IV.CONT CONT ALBA Rx#:[id number] Diprivan 1000 mg/100 ml Inj 1, 75 / 75 000 mg In 100 ml @ 5 MCG/KG/MIN 3 mls/hr IV.CONT TITRATE PRN Rx#:[id number] D5W/Normal Saline Inj 1,000 ML 1238 / 1238 @ 75 mls/hr IV.SIG .[id number] ALBA Rx#:[id number] MVI-12 Inj 10 ML Thiamine Inj 511.2 / 511.2 100 MG Folvite Inj 1 MG In NS Inj 500 ML @ 125 mls/hr IV.SIG Q24H ALBA Rx#:[id number] Oral 0 / 0 Output: Urine Amount (Catheter) 1225 / 1225 550 / 550 Indwelling Urethral Catheter 1225 / 1225 550 / 550 Gastric Drainage 250 / 250 Oral Orogastric Tube 250 / 250 Other: # Bowel Movements 0 Result Diagrams: 11/24/17 03:28 11/24/17 08:25 Objective Remarks: - Constitutional Lying in bed comfortable - Routine HEENT Exam Head: normocephalic, atraumatic - Routine Neck Exam Supple. Absent JVD, carotid bruit - Routine Respiratory Exam Air entry equal bilaterally no wheezes or crackles - Routine Cardiovascular Exam RRR, S1, S2 normal no murmurs - Routine Abdominal Exam Soft, normoactive bowel sounds. - Routine Extremities Exam No cyanosis, clubbing, edema - Routine Skin Exam intact. No cyanosis, erythema - Routine Neurological Exam Alert awake, following commands. Improving mentation. No focal deficits Assessment and Plan - Assessment and Plan Plan: Respiratory failure -Extubated breathing comfortably -DuoNeb's as needed Altered mental status-improving -Intoxication with Cocaine, Motrin PM -CT head negative -Drug screen positive only for cocaine. Also overdosed on Motrin. (Ibuprofen plus diphenhydramine) -Supportive care -Psych consult Cocaine intoxication -Monitor for withdrawal -Benzodiazepines as needed Acute kidney injury-resolved -Aggressive IV fluid hydration -Strict I's and O's -Monitor creatinine and electrolytes level UGIB-resolved: -Most likely from gastritis from Motrin overdose -DC Protonix infusion-cahnge to PO prtonix 40 BID -Regular diet DVT GI prophylaxis -Teds SCDs -Protonix as above Level 2 Consult hospitalist to assume care in a.m. 11/26/2017. Transfer to [facility] with telemetry
[2017-11-25] MEDS: Multivitamin Inj 10 ML, Thiamine Inj 100 MG, Folic Acid Inj 1 MG in Sodium Chlor 0.9% I... IV.SIG SCH (14:43)
--- NOTE | 2017-11-25 15:14 | ECG ---
Date Performed: 11/23/2017 Time Performed: 19:52:01 PTAGE: 89 years EKG: SINUS TACHYCARDIA POSSIBLE LEFT ATRIAL ENLARGEMENT POSSIBLE LEFT VENTRICULAR HYPERTROPHY NO NSPECIFIC T-WAVE ABNORMALITY ABNORMAL ECG NO PREVIOUS TRACING DOCTOR: Jovi Jean Interpretating Date/Time 11/25/2017 15:13:47
--- NOTE | 2017-11-25 15:16 | ECG ---
Date Performed: 11/24/2017 Time Performed: 06:16:00 PTAGE: 89 years EKG: Sinus rhythm Since previous tracing, no significant change noted Normal ECG PREVIOUS TRACING : 11/23/2017 19.52.01 DOCTOR: Jovi Jean Interpretating Date/Time 11/25/2017 15:16:11
[2017-11-26] MEDS: Oral Hygiene Kit OROPHARYNG SCH ×3 (04:39→19:20)
[2017-11-26] MEDS: Chlorhexidine Gluconate 2% 1 Pack (2 Cloths) TOPICAL SCH (04:39)
[2017-11-26] MEDS: Senna/Docusate Sodium 8.6/50 MG Tablet PO SCH ×2 (09:45→20:22)
[2017-11-26] MEDS: Chlorhexidine 0.12% Oral Kit 15 ML UDC OROPHARYNG SCH ×2 (09:45→20:21)
--- NOTE | 2017-11-26 11:34 | P.PNIM ---
Subjective Interval history: in no acute distress. denies abdominal pain,nausea. no fever. Physical Exam Vital signs: Vital Signs 11/25/17 12:00 11/25/17 13:00 11/25/17 14:00 Temperature Pulse Rate 47 L 48 L 50 L Respiratory Rate Blood Pressure 161/77 H 172/79 H Pulse Oximetry 100 100 100 11/25/17 14:01 11/25/17 15:00 11/25/17 16:00 Temperature Pulse Rate 50 L 51 L 59 L Respiratory Rate Blood Pressure 182/77 H 184/84 H Pulse Oximetry 98 100 100 11/25/17 16:01 11/25/17 17:00 11/25/17 17:01 Temperature Pulse Rate 58 L 51 L 51 L Respiratory Rate Blood Pressure 182/77 H 177/81 H Pulse Oximetry 100 100 100 11/25/17 18:00 11/25/17 18:53 11/25/17 19:00 Temperature Pulse Rate 63 62 60 Respiratory Rate Blood Pressure 139/72 147/76 H Pulse Oximetry 99 100 100 11/25/17 20:00 11/25/17 21:00 11/26/17 00:00 Temperature 99.1 F 97.8 F 97.9 F Pulse Rate 60 58 L 54 L Respiratory Rate 18 20 20 Blood Pressure 133/75 153/78 H 141/79 H Pulse Oximetry 100 98 98 11/26/17 04:00 11/26/17 08:00 Temperature 98.0 F 97.7 F Pulse Rate 52 L 56 L Respiratory Rate 20 20 Blood Pressure 143/79 H 139/74 Pulse Oximetry 98 98 Intake & Output 11/25/17 11/26/17 11/26/17 18:59 06:59 18:59 Intake Total 41.7 / 41.7 120 / 120 Balance 41.7 / 41.7 120 / 120 Weight 89.5 kg Intake: IV 41.7 / 41.7 Protonix Inj 80 MG In NS Inj 41.7 / 41.7 100 ML @ 10 mls/hr IV.CONT CONT ALBA Rx#:[id number] Oral 120 / 120 Other: # Voids 3 # Bowel Movements 0 - Constitutional no acute distress - Routine Respiratory Exam Present: CTA bilaterally - Routine Cardiovascular Exam Present: RRR - Routine Abdominal Exam Present: soft - Routine Extremities Exam Comments: no pedal edema. - Routine Neurological Exam Present: alert, oriented X3 - Urinary Catheter Management Indwelling Urethral Catheter Cath placed during this visit: yes Reason for continuing: Hourly intake/output Insertion date: 11/23/17 Insertion time: 19:30 Results - Labs CBC & Chem 7: 11/24/17 03:28 11/24/17 08:25 Laboratory Results - last 24 hr 11/25/17 11:41 POC Glucose 95 Microbiology 11/23/17 20:35 Blood - Peripheral Aerobic Blood Culture - Preliminary No growth in 3 days 11/23/17 20:35 Blood - Peripheral Anaerobic Blood Culture - Preliminary No growth in 3 days 11/23/17 20:45 Blood - Peripheral Aerobic Blood Culture - Preliminary Staphylococcus coag negative 11/23/17 20:45 Blood - Peripheral Anaerobic Blood Culture - Preliminary Staphylococcus coag negative 11/23/17 19:45 Catheterized Urine Urine Culture - Final No growth in 48 hours Assessment and Plan - Plan Respiratory failure -Extubated breathing comfortably -DuoNeb's as needed Altered mental status-improving -Intoxication with Cocaine, Motrin PM -CT head negative -Drug screen positive only for cocaine. Also overdosed on Motrin. (Ibuprofen plus diphenhydramine) -Supportive care -Psych consulted Cocaine intoxication -Monitor for withdrawal -Benzodiazepines as needed Acute kidney injury-resolved -Aggressive IV fluid hydration -Strict I's and O's -Monitor creatinine and electrolytes level bacteremia two bottles positive for gram positive cocci- received a dose of Vanco- will continue with Vanco for now repeat blood cultures and follow the final ID UGIB-resolved: -Most likely from gastritis from Motrin overdose -DC'ed Protonix infusion-changed to PO prtonix 40 BID -Regular diet DVT GI prophylaxis -Teds SCDs -Protonix as above Discharge Planning: possible dc tomorrow- pending the psych evaluation and repeated blood cultures.
[2017-11-26] MEDS ORDERED: Vancomycin Consult Pharmacy 1 EACH OTHER PRN (11:37)
--- NOTE | 2017-11-26 12:13 | P.CONPSY ---
Provisional Diagnosis Admission Date: November 23, 2017 22:21 Polysubstance dependance including cocaine, methamphetamines, alcohol, history of bipolar disorder and anxiety Hawthorne I.: Deferred Hawthorne II.: Dm II History of Present Illness Service: Medicine Primary Care Provider: No Primary Care Physician History of Present Illness: The patient is a 46 year-old -Citizen Of [place] man, first time at [place], unemployed, homeless, single, with self-reported psychiatric history of bipolar disorder, anxiety, 3 previous psychiatric hospitalizations, suicide attempts, no self cutting behavior, he is not in psychotropics, no engage in outpatient care, polysubstance dependence including methamphetamines, cocaine, alcohol, medical history of diabetes mellitus type 2, presented by ambulance with altered mental status with possible overdose with drug. He was found with Motrin p.m. He was given 1.2 mg of Narcan with mild improvement. He was intubated by ED attending for an airway protection and acute respiratory failure. No further history is obtainable due to patient's mental status and endotracheal intubation. Was admitted in the critical care unit due to Respiratory failure, Altered mental status, GIL. Consulted to psychiatry to address a potential suicidal attempt, the patient is on the BA. On my psychiatric evaluation I find a patient that is calm, cooperative, a little bit irritable, with low tone and volume of voice. Patient explains that he did not wanted to commit suicide, he says that he had an accident for using drugs to get high. Patient reports that he uses cocaine, methamphetamines and alcohol occasionally, sometimes together. Patient reports that he has too many reasons to live for. He is future oriented,. He denies any symptomatology of depression, denies anhedonia, denies hopelessness, denies helplessness, he denies suicidal and homicidal ideation, denies visual and auditory hallucinations. The patient is fully oriented 3. No gross cognitive impairment present. Past psychiatric history: Patient self-reported bipolar and anxiety, 3 previous psychiatric hospitalizations, 2 suicide attempts, he is not a medications, he denies of cutting behavior, no outpatient care. Past medical history: Patient has diabetes mellitus type 2 Past family psychiatric history: Patient reports that his mother is bipolar Substance history: He reports the use of cocaine, methamphetamines, alcohol almost every day Social history: The patient was born and raised in [facility], he is homeless in the [place] [facility] area, unemployed, single, his highest level of education is some college Review of Systems Constitutional: Denies anorexia, Denies body ache(s), Denies chills, Denies daytime sleepiness, Denies excessive sweating, Denies fatigue, Denies fever(s), Denies headache(s), Denies increased appetite, Denies lack of energy, Denies malaise, Denies night sweats, Denies weakness, Denies weight gain, Denies weight loss, Denies other Ears, Nose, Mouth, and Throat: Denies abnormal hearing, Denies bleeding gums, Denies bad breath, Denies change in voice, Denies dental pain, Denies difficulty swallowing, Denies dizziness, Denies dry mouth, Denies ear discharge , Denies ear pain, Denies facial pain, Denies headache(s), Denies hearing loss, Denies hoarseness, Denies lip swelling, Denies nosebleed, Denies mouth lesions, Denies mouth pain, Denies nasal congestion, Denies nasal discharge, Denies nasal obstruction, Denies nasal trauma, Denies neck lump, Denies neck pain, Denies nose pain, Denies pain with swallowing, Denies poor balance, Denies post nasal drip, Denies ringing in the ears, Denies sinus pain, Denies sinus pressure , Denies sore throat, Denies throat swelling, Denies tongue swelling, Denies other Cardiovascular: Denies chest pain, Denies chest pain at rest, Denies chest pain with activity, Denies excessive sweating, Denies fainting, Denies fast heart rate, Denies foot swelling, Denies generalized swelling, Denies irregular heart rhythm, Denies leg pain with activity, Denies leg sores, Denies leg swelling, Denies lightheadedness, Denies radiating jaw, neck or arm pain, Denies rapid, pounding, or irregular heartbeat, Denies shortness of breath, Denies shortness of breath with activity, Denies shortness of breath when lying down, Denies shortness of breath causing sudden awakening, Denies slow heart rate, Denies other Respiratory: Denies change in phlegm color, Denies chest congestion, Denies cough, Denies coughing up blood, Denies excessive phlegm production, Denies pain on inspiration, Denies pain with cough, Denies shortness of breath, Denies shortness of breath with activity, Denies snoring, Denies stridor, Denies wheezing, Denies other Gastrointestinal: Denies abdominal pain, Denies belching, Denies black, tarry stools, Denies bloating, Denies bright, red blood in stools, Denies change in bowel habits, Denies constant urge to pass stool, Denies change in stools, Denies coffee ground vomit, Denies constipation, Denies cramping, Denies difficulty swallowing, Denies excessive passing of gas, Denies feeling full early, Denies heartburn, Denies incontinent of stools, Denies loose stools, Denies nausea, Denies pain with swallowing, Denies vomiting, Denies vomiting blood, Denies other Genitourinary: Denies blood in semen, Denies blood in urine, Denies decreased urination, Denies difficulty urinating, Denies difficulty with ejaculations, Denies erectile dysfunction, Denies genital lesions, Denies genital pain, Denies painful urination, Denies side pain, Denies frequent nighttime urination , Denies painful ejaculations, Denies penile discharge, Denies scrotal swelling , Denies testicle lump, Denies testicle pain, Denies urinary frequency, Denies urinary hesitancy, Denies urinary incontinence, Denies urinary urgency, Denies other Musculoskeletal: Denies abnormal walking, Denies back pain, Denies body aches, Denies decreased muscle mass, Denies deformity, Denies joint pain, Denies joint swelling, Denies limited joint movement, Denies loss of height, Denies muscle cramps, Denies muscle weakness, Denies neck pain, Denies numbness, Denies radiating pain into limb, Denies stiffness, Denies tingling, Denies other Skin/Breast: Denies acne, Denies bleeding lesions, Denies boil, Denies breast swelling, Denies breast skin changes, Denies breast pain, Denies breast lump, Denies change in breast shape, Denies change in hair, Denies change in skin color, Denies changing lesions, Denies dry skin, Denies excessive hair growth, Denies hair loss, Denies itching, Denies lesions, Denies nail changes, Denies new lesions, Denies nipple discharge, Denies non-healing lesions, Denies redness , Denies sensitivity to light, Denies rash, Denies skin pain, Denies skin ulcer , Denies sores, Denies stretch naqvi, Denies unusual bruising, Denies wounds, Denies yellowing of the skin, Denies other Neurologic: Denies abnormal hearing, Denies abnormal movements, Denies abnormal speech, Denies abnormal walking, Denies behavioral changes, Denies burning sensations, Denies confusion, Denies dizziness, Denies fainting, Denies frequent falls, Denies headache(s), Denies lack of coordination, Denies localized weakness, Denies loss of vision, Denies memory loss, Denies numbness, Denies other visual disturbances, Denies radiating pain, Denies restless legs, Denies convulsions, Denies seizure-like activity, Denies sensory deficit, Denies tingling, Denies tingling/numbness/burning sensations, Denies tremor(s), Denies unsteadiness, Denies weakness, Denies other Psychiatric: Denies abnormal sleep pattern, Denies anxiety, Denies behavioral changes, Denies change in appetite, Denies change in sex drive, Denies confusion , Denies depression, Denies difficulty concentrating, Denies hearing things others do not hear, Denies hopelessness, Denies irritability, Denies lack of enjoyment, Denies memory loss, Denies mood swings, Denies panic attacks, Denies paranoia, Denies seeing things others do not see, Denies sensing things others do not sense, Denies tactile hallucinations, Denies thoughts of hurting/killing others, Denies thoughts of hurting/killing yourself, Denies other Endocrine: Denies cold intolerance, Denies excessive sweating, Denies flushing, Denies heat intolerance, Denies increased hunger, Denies increased thirst, Denies increased urination, Denies rapid, pounding, or irregular heartbeat, Denies other PMFSH - History History Provided By: Patient - Medical / Surgical Hx Neg / Unobtainable Medical Problems Denied: Unable to Obtain - Medical History Medical History: Medical History (Last Reviewed 11/23/17 @ 21:42 by Annette Jean MD) Patient unable to obtain copy of document Patient unable to obtain copy of document - Tobacco History Second Hand Smoke Exposure: No Tobacco Use In Past 30 Days: Yes Smoking Status: Current every day smoker Tobacco Type: Cigarettes - Alcohol History How Often Do You Have a Drink Containing Alcohol: 4 or more times a week - Substance Use History Substance History: Active Abuse - Substance Use Type Crack/Cocaine Status: Active Route Used: Inhalation - Immunization History Tetanus Immunization: Unable to Assess Hx Influenza Vaccine This Season: Unable to Assess Medications and Allergies Active Medications: Active Medications Acetaminophen (Tylenol) 650 mg PO Q6H PRN PRN Reason: PAIN 1-10 AND/OR FEVER >101F Al Hydroxide/Mg Hydroxide (Milk Of Jennifer Graves) 30 ml PO Q12H PRN PRN Reason: Mild Constipation Albuterol (Duoneb Neb (Prn)) 1 ampul NEB Q2HR NEB PRN PRN Reason: WHEEZING Bisacodyl (Dulcolax Supp) 10 mg RECTAL DAILY PRN PRN Reason: SEVERE CONSITIPATION Chlorhexidine Gluconate (Peridex 0.12% Oral Kit) 15 ml OROPHARYNG BID@0800, 2000 [facility] Last Admin: 11/26/17 09:45 Dose: Not Given Chlorhexidine Gluconate (Chlorhexidine 2% Cloth) 3 pack TOPICAL DAILY@0400 [facility] Stop: 11/29/17 03:59 Last Admin: 11/26/17 04:39 Dose: Not Given Chlorhexidine Gluconate (Chlorhexidine 2% Cloth) 3 pack TOPICAL DAILY@0400 PRN PRN Reason: Extra cloth needed Stop: 11/29/17 03:59 Magnesium Sulfate Inj 4 gm/ (Sodium Chloride) 100 mls @ 50 mls/hr IV.SIG UNSCH PRN PRN Reason: For Magnesium 0.9 - 1.1 mg/dL Magnesium Sulfate Inj 2 gm/ (Sodium Chloride) 100 mls @ 50 mls/hr IV.SIG UNSCH PRN PRN Reason: For Magnesium 1.2 - 1.6 mg/dL Sodium Phosphate 30 mmol/ (Sodium Chloride) 260 mls @ 42 mls/hr IV.SIG UNSCH PRN PRN Reason: For Phosphorus < 2.5 mg/dL Multivitamins 10 ml/ Thiamine HCl 100 mg/ Folic Acid 1 mg/Sodium Chloride 511.2 mls @ 125 mls/hr IV.SIG Q24H [facility] Stop: 11/26/17 16:06 Last Admin: 11/25/17 14:43 Dose: 125 mls/hr Pharmacy Profile Note (Vancomycin Consult Pharmacy) 0 mls @ 0 mls/hr OTHER UNSCH [facility] Lactulose (Lactulose Liq) 30 ml PO DAILY PRN PRN Reason: SEVERE CONSITIPATION Magnesium Oxide (Mag-Ox) 800 mg PO UNSCH PRN PRN Reason: For Magnesium 1.2 - 1.6 mg/dL Ondansetron HCl (Zofran Inj) 4 mg IV.PUSH Q6H PRN PRN Reason: NAUSEA OR VOMITING Pantoprazole Sodium (Protonix) 40 mg PO BID [facility] Last Admin: 11/26/17 09:45 Dose: Not Given Senna/Docusate Sodium (Sanjana-Colace) 1 tab PO BID [facility] Last Admin: 11/26/17 09:45 Dose: Not Given Sennosides (Senokot) 17.2 mg PO Q12H PRN PRN Reason: Moderate Constipation Sodium Chloride (Ns Flush) 2 ml IV.FLUSH BID [facility] Last Admin: 11/26/17 09:46 Dose: 2 ml Sodium Chloride (Ns Flush) 2 ml IV.FLUSH PRN PRN PRN Reason: FLUSH AFTER USING IV ACCESS Allergies Allergy/AdvReac Type Severity Reaction Status Date / Time No Allergy Information Allergy Unverified 11/23/17 19:18 Available Home Medications Medication Instructions Recorded Confirmed Type Unable to Obtain Home Meds 11/23/17 11/23/17 History Exam Vital signs: Vital Signs 11/25/17 12:00 11/25/17 13:00 11/25/17 14:00 Temperature Pulse Rate 47 L 48 L 50 L Respiratory Rate Blood Pressure 161/77 H 172/79 H Pulse Oximetry 100 100 100 11/25/17 14:01 11/25/17 15:00 11/25/17 16:00 Temperature Pulse Rate 50 L 51 L 59 L Respiratory Rate Blood Pressure 182/77 H 184/84 H Pulse Oximetry 98 100 100 11/25/17 16:01 11/25/17 17:00 11/25/17 17:01 Temperature Pulse Rate 58 L 51 L 51 L Respiratory Rate Blood Pressure 182/77 H 177/81 H Pulse Oximetry 100 100 100 11/25/17 18:00 11/25/17 18:53 11/25/17 19:00 Temperature Pulse Rate 63 62 60 Respiratory Rate Blood Pressure 139/72 147/76 H Pulse Oximetry 99 100 100 11/25/17 20:00 11/25/17 21:00 11/26/17 00:00 Temperature 99.1 F 97.8 F 97.9 F Pulse Rate 60 58 L 54 L Respiratory Rate 18 20 20 Blood Pressure 133/75 153/78 H 141/79 H Pulse Oximetry 100 98 98 11/26/17 04:00 11/26/17 08:00 Temperature 98.0 F 97.7 F Pulse Rate 52 L 56 L Respiratory Rate 20 20 Blood Pressure 143/79 H 139/74 Pulse Oximetry 98 98 Intake & Output 11/25/17 11/26/17 11/26/17 18:59 06:59 18:59 Intake Total 41.7 / 41.7 120 / 120 Balance 41.7 / 41.7 120 / 120 Weight 89.5 kg Intake: IV 41.7 / 41.7 Protonix Inj 80 MG In NS Inj 41.7 / 41.7 100 ML @ 10 mls/hr IV.CONT CONT ALBA Rx#:[id number] Oral 120 / 120 Other: # Voids 3 # Bowel Movements 0 Narrative: No gait disturbance, no psychomotor agitation retardation, no stiffness, no EPS , no withdrawal at the moment - Constitutional no acute distress - Routine HEENT Exam Head: Present: normocephalic Mental Status Examination Appearance: Appropriate Consciousness: Alert, Lethargic Motor Activity: Normal gait Speech: Unremarkable Language: Adequate Fund of Knowledge: Adequate Attention and Concentration: Adequate Memory: Unremarkable Mood: Appropriate Affect: Appropriate Thought Process & Associations: Intact Thought Content: Appropriate Hallucination Type: None Suicidal Ideation: No Suicidal Plan: No Suicidal Intention: No Homicidal Ideation: No Homicidal Plan: No Homicidal Intention: No Insight: Fair Judgment: Impulsive Assessment and Plan - Plan Plan: Estimated LOS: [] days On my psychiatric evaluation today I did not find any neuropsychiatric symptoms that require an immediate psychiatric intervention. The patient denies symptomatology of depression, anxiety, nikole and psychosis. The patient denies suicidal and homicidal ideation, he denies visual and auditory hallucinations. The patient is logical, coherent and relevant. Future oriented, oriented 3. Apparently his recent overdose with drugs was the result of the amount of active use of drugs and consequence poor judgment. He does not meet criteria for involuntary psychiatric admission. He should be in [facility] protocol to prevent alcohol withdrawal. Support, psychoeducation and motivation provided. Justification for Continued Inpatient Stay: BA lifted
[2017-11-26] MEDS ORDERED: Vancomycin Inj 1,000 MG in Sodium Chlor 0.9% Inj 250 ML IV.SIG ONE (15:00)
[2017-11-26] MEDS: Multivitamin Inj 10 ML, Thiamine Inj 100 MG, Folic Acid Inj 1 MG in Sodium Chlor 0.9% I... IV.SIG SCH (16:16)
[2017-11-26 20:03] LABS: Calcium 8.2 mg/dL (8.5-10.1); Carbon Dioxide 22.7 meq/L (21.0-32.0); Potassium 4.3 meq/L (3.5-5.1)
[2017-11-27] MEDS: Senna/Docusate Sodium 8.6/50 MG Tablet PO SCH ×2 (08:56→21:20)
[2017-11-27] MEDS: Chlorhexidine Gluconate 2% 1 Pack (2 Cloths) TOPICAL SCH (08:57)
[2017-11-27] MEDS: Oral Hygiene Kit OROPHARYNG SCH ×3 (08:57→23:35)
[2017-11-27] MEDS: Chlorhexidine 0.12% Oral Kit 15 ML UDC OROPHARYNG SCH ×2 (08:59→23:35)
--- NOTE | 2017-11-27 14:08 | P.PN ---
Subjective Interval history: Follow up: OD with Cocaine, ETOH and motrin PM patient intubated 11/23, extubated 11/24 2/4 bottles of blood culture growing staphylococcus coagulase negative Patient reports feeling well offers no medical complaints asking to be DC home Physical Exam Vital signs: Vital Signs 11/26/17 16:38 11/26/17 18:00 11/26/17 20:00 Temperature 98.2 F 98.3 F Pulse Rate 114 H 66 62 Respiratory Rate 18 20 Blood Pressure 160/80 H 159/71 H Pulse Oximetry 100 98 11/27/17 00:00 11/27/17 04:00 11/27/17 08:00 Temperature 98.5 F 98.7 F 98.3 F Pulse Rate 71 75 79 Respiratory Rate 18 18 16 Blood Pressure 169/84 H 134/76 141/65 H Pulse Oximetry 99 98 99 11/27/17 09:00 11/27/17 13:04 Temperature 98.4 F Pulse Rate 79 64 Respiratory Rate 16 Blood Pressure 138/64 Pulse Oximetry 99 Intake & Output 11/26/17 11/27/17 11/27/17 18:59 06:59 18:59 Intake Total 600 / 600 1200 / 1200 Balance 600 / 600 1200 / 1200 Weight 96.4 kg Intake: Oral 600 / 600 1200 / 1200 Other: # Voids 3 6 Narrative: GENERAL: This is a well-nourished, well-developed patient, in no apparent distress. CARDIOVASCULAR: Regular rate and rhythm RESPIRATORY: Clear to auscultation. Breath sounds equal bilaterally. GASTROINTESTINAL: Abdomen soft, non-tender, nondistended. Normal active bowel sounds MUSCULOSKELETAL: Extremities without clubbing, cyanosis, or edema. NEURO: Alert & Oriented x4 to person, place, time, situation. Moves all ext x4 - Urinary Catheter Management Indwelling Urethral Catheter Cath placed during this visit: yes Reason for continuing: Hourly intake/output Insertion date: 11/23/17 Insertion time: 19:30 Results - Labs CBC & Chem 7: 11/24/17 03:28 11/26/17 19:03 Laboratory Results - last 24 hr 11/26/17 11/27/17 19:03 08:05 Sodium 142 Potassium 4.3 Chloride 112 H Carbon Dioxide 22.7 Anion Gap 7 BUN 15 Creatinine 1.53 H Estimated GFR 60 L Random Glucose 98 Calcium 8.2 L Random Vancomycin 3.1 Microbiology 11/23/17 20:45 Blood - Peripheral Aerobic Blood Culture - Final Staphylococcus coag negative 11/23/17 20:45 Blood - Peripheral Anaerobic Blood Culture - Final Staphylococcus coag negative 11/26/17 19:03 Blood - Peripheral Aerobic Blood Culture - Preliminary No growth in 1 day 11/26/17 19:03 Blood - Peripheral Anaerobic Blood Culture - Preliminary No growth in 1 day 11/23/17 20:35 Blood - Peripheral Aerobic Blood Culture - Preliminary No growth in 4 days 11/23/17 20:35 Blood - Peripheral Anaerobic Blood Culture - Preliminary No growth in 4 days Assessment and Plan - Plan Respiratory failure -intubated 11/23, extubated 11/24 -Extubated breathing comfortably -DuoNeb's as needed Altered mental status-improving -Intoxication with Cocaine, Motrin PM -CT head negative -Drug screen positive only for cocaine. Also overdosed on Motrin. (Ibuprofen plus diphenhydramine) -Supportive care -Psych consulted, lifted ball act does not feel that patient meets involuntary inpatient psychiatric admission criteria Cocaine intoxication -Monitor for withdrawal -Benzodiazepines as needed Tobacco abuse - nicotine patch ordered Anxiety - Ativan as needed for anxiety Acute kidney injury-resolved -Aggressive IV fluid hydration -Strict I's and O's -Monitor creatinine and electrolytes level bacteremia two bottles positive for staphylococcus coagulase negative received a dose of Vanco- will continue with Vanco for now repeat blood cultures NG x 1 day, follow the final ID UGIB-resolved: -Most likely from gastritis from Motrin overdose -DC'ed Protonix infusion-changed to PO prtonix 40 BID -Regular diet DVT GI prophylaxis -Teds SCDs -Protonix as above Discharge Planning: await repeat blood culture results Discussed case with supervising physician Dr. Batista does not feel comfortable DCing at this time await repeat blood culture results Discussed with patient and nurse
[2017-11-27] MEDS: LORazepam 0.5 MG Tablet PO PRN (17:49)
[2017-11-27] MEDS: Vancomycin Inj 1,500 MG in Sodium Chlor 0.9% Inj 500 ML IV.SIG SCH (17:49)
[2017-11-28] MEDS: Chlorhexidine Gluconate 2% 1 Pack (2 Cloths) TOPICAL SCH (03:37)
[2017-11-28] MEDS: Oral Hygiene Kit OROPHARYNG SCH ×4 (03:37→19:51)
[2017-11-28] MEDS: LORazepam 0.5 MG Tablet PO PRN ×2 (07:23→21:04)
[2017-11-28 08:53] LABS: Baso % (Auto) 0.7 % (0.0-2.0); Eos # (Auto) 0.1 th/mm3 (0.0-0.4); Eos % (Auto) 2.7 % (0.0-4.0); Hematocrit 42.1 % (39.0-51.0); Hemoglobin 14.2 gm/dL (13.0-17.0); Lymph # (Auto) 1.4 th/mm3 (1.0-4.8); Lymph % (Auto) 37.9 % (9.0-44.0); Mean Corpuscular HGB Conc 33.6 % (32.0-36.0); Mean Corpuscular Hemoglobin 33.1 pg (27.0-34.0); Mean Corpuscular Volume 98.3 fL (80.0-100.0); Mean Platelet Volume 8.2 fL (7.0-11.0); Mono # (Auto) 0.4 th/mm3 (0.0-0.9); Mono % (Auto) 9.9 % (0.0-8.0); Neut # (Auto) 1.8 th/mm3 (1.8-7.7); Neut % (Auto) 48.8 % (16.0-70.0); Platelet Count 247 th/mm3 (150-450); Red Blood Count 4.28 mil/mm3 (4.50-5.90); Red Cell Distribution Width 12.9 % (11.6-17.2); White Blood Count 3.7 th/mm3 (4.0-11.0)
[2017-11-28 09:03] LABS: Calcium 8.7 mg/dL (8.5-10.1); Carbon Dioxide 29.8 meq/L (21.0-32.0); Potassium 3.8 meq/L (3.5-5.1)
[2017-11-28 09:30] VITALS: O2SAT 100
[2017-11-28] MEDS: Chlorhexidine 0.12% Oral Kit 15 ML UDC OROPHARYNG SCH ×2 (10:33→19:51)
[2017-11-28] MEDS: Senna/Docusate Sodium 8.6/50 MG Tablet PO SCH ×3 (10:34→22:52)
--- NOTE | 2017-11-28 12:27 | P.PN ---
Subjective Interval history: Follow up: OD with Cocaine, ETOH and motrin PM patient intubated 11/23, extubated 11/24 2/4 bottles of blood culture growing staphylococcus coagulase negative Patient reports feeling well offers no medical complaints asking to be DC home Physical Exam Vital signs: Vital Signs 11/27/17 13:04 11/27/17 18:00 11/27/17 20:00 Temperature 98.4 F 98.7 F 99.1 F Pulse Rate 64 63 71 Respiratory Rate 16 16 16 Blood Pressure 138/64 135/85 162/83 H Pulse Oximetry 99 99 100 11/28/17 00:00 11/28/17 04:01 11/28/17 05:15 Temperature 98.8 F 99.1 F Pulse Rate 68 58 L 72 Respiratory Rate 16 18 Blood Pressure 155/92 H 154/83 H Pulse Oximetry 100 99 11/28/17 08:00 11/28/17 09:00 Temperature 98.1 F Pulse Rate 70 83 Respiratory Rate 19 Blood Pressure 144/87 H Pulse Oximetry 100 Intake & Output 11/27/17 11/28/17 11/28/17 18:59 06:59 18:59 Intake Total 360 / 360 880 / 880 250 / 250 Balance 360 / 360 880 / 880 250 / 250 Weight 95.9 kg Intake: IV 250 / 250 Vancomycin Inj 1,500 MG In NS 250 / 250 Inj 500 ML @ 250 mls/hr IV.SIG Q24H [facility] Rx#:[id number] Oral 360 / 360 880 / 880 Other: # Voids 3 7 # Bowel Movements 0 1 Narrative: GENERAL: This is a well-nourished, well-developed patient, in no apparent distress. CARDIOVASCULAR: Regular rate and rhythm RESPIRATORY: Clear to auscultation. Breath sounds equal bilaterally. GASTROINTESTINAL: Abdomen soft, non-tender, nondistended. Normal active bowel sounds MUSCULOSKELETAL: Extremities without clubbing, cyanosis, or edema. NEURO: Alert & Oriented x4 to person, place, time, situation. Moves all ext x4 - Urinary Catheter Management Indwelling Urethral Catheter Cath placed during this visit: yes Reason for continuing: Hourly intake/output Insertion date: 11/23/17 Insertion time: 19:30 Results - Labs CBC & Chem 7: 11/28/17 07:10 11/28/17 07:10 Laboratory Results - last 24 hr 11/28/17 11/28/17 11/28/17 07:10 07:10 07:10 WBC 3.7 L RBC 4.28 L Hgb 14.2 Hct 42.1 MCV 98.3 MCH 33.1 MCHC 33.6 RDW 12.9 Plt Count 247 MPV 8.2 Neut % (Auto) 48.8 Lymph % (Auto) 37.9 Dewitt % (Auto) 9.9 H Eos % (Auto) 2.7 Baso % (Auto) 0.7 Neut # (Auto) 1.8 Lymph # (Auto) 1.4 Dewitt # (Auto) 0.4 Eos # (Auto) 0.1 Baso # (Auto) 0.0 WBC Differential . Differential Comment Auto diff final Sodium 139 Potassium 3.8 Chloride 105 Carbon Dioxide 29.8 Anion Gap 4 L BUN 12 Creatinine Cancelled 1.10 Estimated GFR Cancelled 88 L Random Glucose 96 Calcium 8.7 Microbiology 11/26/17 19:03 Blood - Peripheral Aerobic Blood Culture - Preliminary No growth in 2 days 11/26/17 19:03 Blood - Peripheral Anaerobic Blood Culture - Preliminary No growth in 2 days 11/23/17 20:35 Blood - Peripheral Aerobic Blood Culture - Final No growth in 5 days 11/23/17 20:35 Blood - Peripheral Anaerobic Blood Culture - Final No growth in 5 days 11/23/17 20:45 Blood - Peripheral Aerobic Blood Culture - Final Staphylococcus coag negative 11/23/17 20:45 Blood - Peripheral Anaerobic Blood Culture - Final Staphylococcus coag negative Assessment and Plan - Plan Respiratory failure -intubated 11/23, extubated 11/24 -Extubated breathing comfortably -DuoNeb's as needed Altered mental status-improving -Intoxication with Cocaine, Motrin PM -CT head negative -Drug screen positive only for cocaine. Also overdosed on Motrin. (Ibuprofen plus diphenhydramine) -Supportive care -Psych consulted, lifted ball act does not feel that patient meets involuntary inpatient psychiatric admission criteria Cocaine intoxication -Monitor for withdrawal -Benzodiazepines as needed Tobacco abuse - nicotine patch ordered Anxiety - Ativan as needed for anxiety Acute kidney injury-resolved -Aggressive IV fluid hydration -Strict I's and O's -Monitor creatinine and electrolytes level bacteremia two bottles positive for staphylococcus coagulase negative received a dose of Vanco- will continue with Vanco for now repeat blood cultures NG x 2 day2, follow the final ID UGIB-resolved: -Most likely from gastritis from Motrin overdose -DC'ed Protonix infusion-changed to PO prtonix 40 BID -Regular diet DVT GI prophylaxis -Teds SCDs -Protonix as above Discharge Planning: await repeat blood culture results Discussed case with supervising physician Dr. Melissa
[2017-11-28] MEDS: Vancomycin Inj 1,500 MG in Sodium Chlor 0.9% Inj 500 ML IV.SIG SCH (12:44)
[2017-11-29 01:18] VITALS: BP 162/98; RESP 18; TEMP 98.9
[2017-11-29] MEDS: Oral Hygiene Kit OROPHARYNG SCH ×2 (07:26→07:27)
--- NOTE | 2017-11-29 09:03 | P.DS ---
Date of admission: 11/23/17 22:21 Primary care physician: No Primary Care Physician Anticipated date of discharge: 11/29/17 Brief History from admission: From ICU Admission: Approximately 31-year-old male presents by ambulance with altered mental status with possible overdose. He was found with Motrin p.m. He was given 1.2 mg of Narcan with mild improvement. He was intubated by ED attending for an airway protection and acute respiratory failure. No further history is obtainable due to patient's mental status and endotracheal intubation. DS: Diagnosis - Discharge Diagnosis (1) Drug overdose Status: Acute (2) Respiratory failure Status: Acute DS: Medications - Discharge Medications Prescriptions: pantoprazole 40 mg PO DAILY #14 tab DS: Summary Hospital Course: Patient update on day of discharge: Follow up for overdose. The patient is awake, alert, oriented 4. He wants to go home. He has no medical complaints. He denies any fever/chills, headache, neck pain, chest pain, shortness of breath, or abdominal complaints. Hospital Course: Respiratory failure: patient admitted with suspected overdose, intubated for airway protectomy, admitted to ICU. Intubated 11/23, extubated 11/24. Extubated breathing comfortably on room air. Toxic Encephalopathy: intoxication/overdose with Cocaine, Motrin PM. CT head negative. Drug screen positive only for cocaine. Also overdosed on Motrin. ( Ibuprofen plus diphenhydramine). Given supportive care. Psych consulted, lifted ball act does not feel that patient meets involuntary inpatient psychiatric admission criteria. Encephalopathy resolved. Cocaine intoxication: Monitor for withdrawal. Benzodiazepines as needed. Stable for discharge. Tobacco abuse: nicotine patch ordered Anxiety- Ativan as needed for anxiety Acute kidney injury-resolved. Cr increased to 1.53, suspect secondary to dehydration and NSAID/cocaine overdose. Given aggressive IV fluid hydration. Cr improved to 1.1. Stable for discharge. Encouraged oral hydration after discharge. +Blood cultures: 2/4 bottles positive for staphylococcus coagulase negative. Collected repeat blood cultures. Started on IV Vanco. Repeat blood cultures with no growth x3days. Patient remained afebrile with no leukocytosis throughout admission. Highly suspect contamination. UGIB: Patient with some coffee groun material in NG tube during intubation. Suspected gastritis from motrin overdose. Given Protonix drip. No further episodes. Discharged on protonix 40mg qd [id number]. - Time Spent with Patient Total time spent providing and/or coordinating discharge services: Less than 30 minutes - Quality: VTE Deep Vein Thrombosis/Pulmonary Embolism Present on Admission: No Exam Vital signs: Vital Signs 11/28/17 13:41 11/28/17 16:00 11/28/17 20:00 Temperature 98.0 F 98.9 F 98.8 F Pulse Rate 80 66 71 Respiratory Rate 19 18 16 Blood Pressure 140/68 146/71 H 148/78 H Pulse Oximetry 100 100 100 11/29/17 00:00 11/29/17 04:00 Temperature 98.9 F Pulse Rate 64 61 Respiratory Rate 18 Blood Pressure 162/98 H Pulse Oximetry 100 Intake & Output 11/28/17 11/29/17 11/29/17 18:59 06:59 18:59 Intake Total 955 / 955 880 / 880 Balance 955 / 955 880 / 880 Weight 96.2 kg Intake: IV 515 / 515 Vancomycin Inj 1,500 MG In NS 515 / 515 Inj 500 ML @ 250 mls/hr IV.SIG Q24H ALBA Rx#:[id number] Oral 440 / 440 880 / 880 Other: # Voids 6 8 # Bowel Movements 0 Narrative: GENERAL: Well-nourished, well-developed middle aged AA male patient in [facility]. SKIN: Warm and dry. No rash. HEENT: Normocephalic. Atraumatic. Pupils equal and round. Mucous membranes pink and moist. NECK: Supple. Trachea midline. CARDIOVASCULAR: Regular rate and rhythm. No murmur appreciated. RESPIRATORY: No accessory muscle use. Clear to auscultation. Breath sounds equal bilaterally. GASTROINTESTINAL: Abdomen soft, non-tender, nondistended. Normoactive bowel sounds x4. MUSCULOSKELETAL: No obvious deformities. Extremities without clubbing, cyanosis , or edema. NEUROLOGICAL: Awake and alert. No obvious cranial nerve deficits. Motor grossly within normal limits. Moving all extremities spontaneously. Normal speech. PSYCHIATRIC: Appropriate mood and affect; insight and judgment normal. Results Procedures completed during hospitalization: None. Labs on day of discharge: Labs from last 24 hours 11/28/17 07:10 Sodium 139 Potassium 3.8 Chloride 105 Carbon Dioxide 29.8 Anion Gap 4 L BUN 12 Creatinine 1.10 Estimated GFR 88 L Random Glucose 96 Calcium 8.7 Preliminary micro results at discharge 11/26/17 19:03 Aerobic Blood Culture - Preliminary Blood - Peripheral No growth in 2 days Anaerobic Blood Culture - Preliminary No growth in 2 days - Impressions ITS Impressions Chest X-Ray 11/23/17 19:27 CONCLUSION: No acute abnormality is seen. Head CT 11/23/17 19:27 CONCLUSION: Discharge Plan - Discharge Disposition Patient Disposition: 01 Discharge Home - Discharge Condition Condition: Stable - Discharge Order Discharge Orders: Discharge Order (Routine); Ordered 11/29/17 Ordered By: Atiya Greene - Discharge Details Anticipated Discharge Date: 11/29/17 - Physicians Team Primary Care Provider: Primary Care Courtney Clemons Attending Provider: Miguel Melissa Other Providers: Williams Beavers MD
[2017-11-29 09:39] VITALS: PULSE 68
[2017-11-30] MEDS ORDERED: Pharmacy Ordered Lab Info OTHER ONE (12:45)
== END 2017-11-29 11:03 | disposition home or self-care (01) ==
LOC: NEPE 19:14 → EDBD 22:21 → NEDA 22:21 → HIMC 11-24 00:40 → N04 11-25 21:38
PROVIDERS: ADMIT Family Medicine; ATTEND Family Medicine